=== PATIENT | male | born 1965 | race Caucasian/White ===

== ENCOUNTER 2018-02-01 12:33 | Emergency (ER) | payer MEDICARE, OTHER ==
[~2018-02-01] VITALS: Ht 190.5 cm; Wt 78.5 kg
[~2018-02-01 12:33] MED LIST: CLIN150C14 PO; HYDR-971 PO
[2018-02-01 12:52] VITALS: BP 121/64
[2018-02-01] MEDS ORDERED: oxyCODONE/APAP 5/325 1 TAB TABLET PO ONE (13:00)
[2018-02-01] MEDS ORDERED: BACITRACIN TOPICAL OINT 14GM TUBE. TP STA (13:06)
[2018-02-01] MEDS ORDERED: HYDR-971 PO (13:15)
[2018-02-01] MEDS ORDERED: DIPHTH,PERTUSS(ACELL),TET TOX 0.5 ML DISP.SYRIN. VAX IM ONE (13:15)
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
== END 2018-02-01 14:35 | disposition home or self-care (01) ==
LOC: ER 12:33
DX: T22.211A Burn of second degree of right forearm, initial encounter (principal); T21.11XA Burn of first degree of chest wall, initial encounter; X16.XXXA Contact with hot heating appliances, radiators and pipes, initial encounter; Y93.89 Activity, other specified; Y92.89 Other specified places as the place of occurrence of the external cause; Y99.8 Other external cause status
CPT/HCPCS: 90471; 90715; 99283-25

== ENCOUNTER 2018-02-13 17:43 | Emergency (ER) | payer MEDICARE, OTHER ==
[~2018-02-13] VITALS: Ht 188 cm; Wt 73.7 kg
[2018-02-13 17:47] VITALS: BP 109/66
[2018-02-13] MEDS ORDERED: SULF1TAB24 PO (17:56)
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
[2018-02-13] MEDS: HYDROcodone/APAP 5/325MG 1 TAB TABLET PO ONE (18:05)
== END 2018-02-13 18:28 | disposition home or self-care (01) ==
LOC: ER 17:43
DX: S81.811A Laceration without foreign body, right lower leg, initial encounter (principal); L08.89 Other specified local infections of the skin and subcutaneous tissue; Z88.0 Allergy status to penicillin; Y28.8XXA Contact with other sharp object, undetermined intent, initial encounter; Y93.89 Activity, other specified; Y92.89 Other specified places as the place of occurrence of the external cause; Y99.8 Other external cause status
CPT/HCPCS: 99283